=== PATIENT | female | born 1955 | race Caucasian/White ===

== ENCOUNTER 2017-11-02 11:24 | Emergency (ER) | payer OTHER, BC ==
[2017-11-02 12:02] VITALS: BP 122/64; PULSE 80; RESP 16; TEMP 97; O2SAT 99
--- NOTE | 2017-11-02 12:35 | ED PDOC ---
Upper Extremity Pain/Injury Time Seen by Provider: 11/02/17 12:15 Chief Complaint (Nursing): Finger,Hand,&Wrist Chief Complaint (Provider): B/l finger,hand & wrist pain History Per: Patient History/Exam Limitations: no limitations Onset/Duration Of Symptoms: Days (June 2017), Worse Since (onset) Current Symptoms Are (Timing): Still Present Additional Complaint(s): Suzette De is a 61 year old female, with a past medical history of diabetes , HTN and heart murmur, who was sent to the emergency department from [facility] for evaluation of a worsening bilateral hand pain onset since June 2017. Patient states she was seen by a specialist and was diagnosed with carpal tunnel , she got a second opinion who told her the same diagnosis. Patient is currently complaining of pain to bilateral hands associated with numbness that radiates to fingers described as pins & needles. Patient is currently using braces and is right hand dominant. No further medical complaints. 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 PMD: Dr. Obando Past Medical History Reviewed: Historical Data, Nursing Documentation, Vital Signs Vital Signs: Last Vital Signs Temp 97 F L 11/02/17 11:57 Pulse 80 11/02/17 11:57 Resp 16 11/02/17 11:57 BP 122/64 11/02/17 11:57 Pulse Ox 99 11/02/17 11:57 - Medical History PMH: CAD, Diabetes, HTN Denies: Arthritis, CHF, COPD, HIV, Hypercholesterolemia, Hypothyroidism, Chronic Kidney Disease, Rheumatoid Arthritis - Surgical History Surgical History: Cholecystectomy - Family History Family History: States: Unknown Family Hx - Immunization History Hx Tetanus Toxoid Vaccination: Yes Hx Influenza Vaccination: No Hx Pneumococcal Vaccination: Yes - Home Medications Home Medications: Ambulatory Orders Medication Instructions Recorded Albuterol Sulfate [Proair Hfa] 2 inh INH PRN PRN 06/11/14 Hydrochlorothiazide/Valsarta 1 tab PO DAILY 06/11/14 [Diovan Hct 12.5 mg-160 mg] Liraglutide [Victoza 3-Foreign] 1.8 mcg SC DAILY 06/11/14 MetFORMIN [glucoPHAGE] 1,000 mg PO BID 06/11/14 Nitroglycerin [Nitrostat] 0.4 mg SL PRN PRN 06/11/14 Rosuvastatin Calcium [Crestor] 10 mg PO DAILY 06/11/14 amLODIPine [Norvasc] 2.5 mg PO DAILY 06/11/14 Azithromycin [Zithromax] 250 mg PO DAILY #6 tab 12/07/15 - Allergies Allergies/Adverse Reactions: Allergies Allergy/AdvReac Type Severity Reaction Status Date / Time acetaminophen [From Percocet] Allergy Verified 12/07/15 23:18 oxycodone HCl [From Percocet] Allergy Verified 12/07/15 23:18 Review of Systems ROS Statement: Except As Marked, All Systems Reviewed And Found Negative Musculoskeletal: Positive for: Hand Pain (bilateral) Neurological: Positive for: Numbness (b/l hands) Physical Exam - Reviewed Nursing Documentation Reviewed: Yes Vital Signs Reviewed: Yes - Physical Exam Appears: Positive for: No Acute Distress Head Exam: Positive for: ATRAUMATIC, NORMAL INSPECTION, NORMOCEPHALIC Skin: Positive for: Normal Color, Warm, Dry Eye Exam: Positive for: Normal appearance Neck: Positive for: Painless ROM Extremity: Positive for: Normal ROM (upper extremities), Other (positive Tinel' s and Phalen's test). Negative for: Tenderness, Deformity, Swelling Neurologic/Psych: Positive for: Alert, Oriented. Negative for: Motor/Sensory Deficits - ECG O2 Sat by Pulse Oximetry: 99 (RA) Pulse Ox Interpretation: Normal Medical Decision Making Medical Decision Making: Time: 12:15 Initial Impression: Carpal tunnel syndrome Initial Plan: --Hand 3 views BI [RAD] --Wrist 3 views BI [RAD] --Reevaluation XRs: NAD, as read by PAChynaC Pt placed in b/l wrist splints by production underwriter. Supportive care measures discussed. Pt advised to follow up with employee health/ her own private hand specialist: Dr. King Scribe Attestation: Documented by Fahad Mckeon, acting as a scribe for Tierra Hewitt PA-C Provider Scribe Attestation: All medical record entries made by the Scribe were at my direction and personally dictated by me. I have reviewed the chart and agree that the record accurately reflects my personal performance of the history, physical exam, medical decision making, and the department course for this patient. I have also personally directed, reviewed, and agree with the discharge instructions and disposition. Disposition - Clinical Impression Clinical Impression: Carpal tunnel syndrome - Patient ED Disposition Is Patient to be Admitted: No - Disposition Disposition: Routine/Home Disposition Time: 13:32 Condition: STABLE Additional Instructions: Follow up with employee health Instructions: Carpal Tunnel Syndrome Forms: [employer] ([place])
--- NOTE | 2017-11-02 15:03 | RAD ---
PROCEDURE: Bilateral hand radiographs. HISTORY: pain to wrists and hands b/l COMPARISON: None available. FINDINGS: BONES: Tiny ossific fragment on the right may reflect remote ulna styloid fracture. No acute displaced fracture identified. No significant degenerative changes. JOINTS: No dislocation. SOFT TISSUES: Unremarkable. No evidence radiopaque foreign body. OTHER FINDINGS: None. IMPRESSION: No acute fracture or significant degenerative change identified. Findings as above.
--- NOTE | 2017-11-02 15:04 | RAD ---
Date of service: 11/02/2017 PROCEDURE: Bilateral Wrists Radiographs. HISTORY: pain COMPARISON: None available. FINDINGS: BONES: Tiny ossific fragment on the right may reflect remote ulna styloid fracture. No acute displaced fracture identified. No significant degenerative changes. JOINT SPACES: No dislocation. SOFT TISSUES: Unremarkable. No evidence of radiopaque foreign body. OTHER FINDINGS: None. IMPRESSION: No acute displaced fracture identified. No significant degenerative change identified.
== END 2017-11-02 13:25 | disposition home or self-care (01) ==
LOC: H.ER 11:24
DX: G56.00 Carpal tunnel syndrome, unspecified upper limb (principal)